=== PATIENT | male | born 1970 | race Two or more races ===

== ENCOUNTER 2020-05-07 12:14 | Emergency (ER) | payer OTHER ==
[~2020-05-07] VITALS: Ht 177.8 cm; Wt 98.4 kg
[2020-05-07] MEDS ORDERED: KETO10TA2 PO (15:42)
[2020-05-07] MEDS ORDERED: SKELAXIN800 MG PO (15:42)
== END 2020-05-07 16:13 | disposition home or self-care (01) ==
LOC: ER 12:14
DX: M25.552 Pain in left hip (principal); M79.605 Pain in left leg